=== PATIENT | female | born 1980 | race Two or more races ===

== ENCOUNTER 2019-10-24 17:44 | Outpatient (CLI) | payer OTHER | END 2019-10-24 19:32 | disposition home or self-care (01) | LOC: RAD 17:44 | DX: M54.2 Cervicalgia (principal); M25.511 Pain in right shoulder ==

== ENCOUNTER 2019-11-08 12:12 | Outpatient (CLI) | payer OTHER | END 2019-11-08 12:23 | disposition home or self-care (01) | LOC: RAD 12:12 | DX: M54.6 Pain in thoracic spine (principal); M54.5 Low back pain ==